=== PATIENT | female | born 1940 | race Caucasian/White ===

== ENCOUNTER 2017-04-13 09:16 | Emergency (ER) | payer MEDICARE, MEDICAID ==
[2017-04-13 09:51] VITALS: RESP 28; O2SAT 95
[2017-04-13] MEDS ORDERED: Sodium Chloride 0.9% 1,000 ML IV STA (09:53)
[2017-04-13 10:11] VITALS: BP 150/94; PULSE 52
[2017-04-13 10:15] LABS: BASO % 0.4 % (0.0-2.0); EOS % 0.1 % (0.0-4.0); HEMOGLOBIN 14.9 g/dL (12.0-16.0); LYMPH % 24.7 % (20.0-40.0); MEAN CELL VOLUME 89.9 fl (81.0-99.0); MEAN CORPUSCULAR HEMOGLOBIN 29.8 pg (27.0-31.0); MEAN CORPUSCULAR HGB CONC 33.2 g/dL (33.0-37.0); MEAN PLATELET VOLUME 8.9 fl (7.2-11.7); MONO # 1.1 K/uL (0.0-0.8); MONO % 9.3 % (0.0-10.0); NEUT # 7.9 K/uL (1.8-7.0); NEUT % 65.5 % (50.0-75.0); NRBC % 0.1 % (0.0-0.0); RBC 4.98 Mil/uL (3.80-5.20); RED CELL DISTRIBUTION WIDTH 13.6 % (11.5-14.5); WHITE BLOOD COUNT 12.1 K/uL (4.8-10.8)
--- NOTE | 2017-04-13 10:19 | ED PDOC ---
HPI: Abdomen Time Seen by Provider: 04/13/17 09:50 Chief Complaint (Nursing): Abdominal Pain Chief Complaint (Provider): Abdominal Pain History Per: Patient History/Exam Limitations: no limitations Onset/Duration Of Symptoms: Hrs Outside of [place] travel?: No Current Symptoms Are (Timing): Still Present Associated Symptoms: Vomiting (x2 episodes). denies: Fever, Chills, Back Pain, Chest Pain, Urinary Symptoms Additional Complaint(s): Brandy Sanabria, a 76 year old female, presents to the ED complaining of non- radiating generalized abdominal pain that started 7am today after breakfast. The patient states that she slept through the night okay but had 2 episodes of vomiting x2. Denies fevers, chills, chest pain, back pain and urinary complaints. Abnormal Vaginal Bleeding: No Past Medical History Reviewed: Historical Data, Nursing Documentation, Vital Signs Vital Signs: Last Vital Signs Temp Pulse 52 L 04/13/17 10:11 Resp 28 H 04/13/17 09:42 BP 150/94 H 04/13/17 10:11 Pulse Ox 95 04/13/17 10:47 - Medical History PMH: Arthritis (osteoarthritis), HTN, Hyperlipidemia - Surgical History Surgical History: - Family History Family History: States: Unknown Family Hx - Living Arrangements Living Arrangements: With Family (lives w/ ) - Home Medications Home Medications: Ambulatory Orders Medication Instructions Recorded Ciprofloxacin/Ciprofloxa HCl 500 mg PO BID #14 tab 12/06/14 [Ciprofloxacin] Ondansetron [Zofran Odt] 4 mg PO Q8H PRN #20 odt 12/06/14 traMADol [Ultram] 50 mg PO Q6 PRN #16 tab 02/14/16 Famotidine [Pepcid] 20 mg PO BID #28 tab 04/13/17 - Allergies Allergies/Adverse Reactions: Allergies Allergy/AdvReac Type Severity Reaction Status Date / Time No Known Allergies Allergy Verified 04/13/17 09:41 Review of Systems Constitutional: Negative for: Fever, Chills Cardiovascular: Negative for: Chest Pain Gastrointestinal: Positive for: Abdominal Pain (non-radiating generalized abdominal pain) Genitourinary Female: Negative for: Dysuria, Frequency, Incontinence, Hematuria Musculoskeletal: Negative for: Back Pain Physical Exam - Reviewed Nursing Documentation Reviewed: Yes Vital Signs Reviewed: Yes - Physical Exam Appears: Positive for: Non-toxic, Uncomfortable (Mild discomfort) Head Exam: Positive for: ATRAUMATIC, NORMAL INSPECTION, NORMOCEPHALIC Skin: Positive for: Normal Color, Warm, Dry Eye Exam: Positive for: Normal appearance, EOMI, PERRL ENT: Positive for: Normal ENT Inspection Neck: Positive for: Normal, Painless ROM, Supple Cardiovascular/Chest: Positive for: Regular Rate, Rhythm, Chest Non Tender. Negative for: Tachycardia Respiratory: Positive for: Normal Breath Sounds. Negative for: Wheezing, Respiratory Distress Gastrointestinal/Abdominal: Positive for: Normal Exam, Bowel Sounds, Soft. Negative for: Tenderness (No focal or palpable tenderness), Distended, Guarding , Rebound Back: Positive for: Normal Inspection Extremity: Positive for: Normal ROM. Negative for: Tenderness, Pedal Edema, Deformity, Swelling Neurologic/Psych: Positive for: Alert, Oriented, Gait - Laboratory Results Result Diagrams: 04/13/17 10:06 04/13/17 10:06 - ECG O2 Sat by Pulse Oximetry: 95 (RA) Pulse Ox Interpretation: Normal - Progress Re-evaluation Time: 12:30 Condition: Re-examined, Improved Medical Decision Making Medical Decision Makin Initial Impression: 76 year old female presenting with abdominal pain Differentials: Gastritis vs Gastroenteritis vs UTI Initial Plan: * EKG * Comp Metabolic Panel * Lipase * Troponin * Udip * CB * CXR * NS 1000mls IV 125mls/hr * Pepcid 20mg IVP * Urinalysis * Reevaluation Scribe Attestation Documented by Wanda Shi acting as a scribe for Pamela Castillo MD. Provider Attestation: All medical record entries made by the Scribe were at my direction and personally dictated by me. I have reviewed the chart and agree that the record accurately reflects my personal performance of the history, physical exam, medical decision making, and the department course for this patient. I have also personally directed, reviewed, and agree with the discharge instructions and disposition. Disposition - Clinical Impression Clinical Impression: Gastritis - Patient ED Disposition Is Patient to be Admitted: No Doctor Will See Patient In The: Office Counseled Patient/Family Regarding: Diagnosis, Need For Followup - Disposition Referrals: Facundo Acuna MD [Medical Doctor] - Disposition: Routine/Home Disposition Time: 12:35 Condition: IMPROVED Prescriptions: Famotidine [Pepcid] 20 mg PO BID #28 tab Instructions: Gastritis (ED) Print Language: S[place]UDANESE - POA Present On Arrival: None
[2017-04-13 10:36] LABS: ALB/GLOB RATIO 1.5 (1.0-2.1); ALBUMIN 4.5 g/dL (3.5-5.0); ALT/SGPT 34 U/L (9-52); AST/SGOT 23 U/L (14-36); BLOOD UREA NITROGEN 20 mg/dl (7-17); CALCIUM 10.3 mg/dL (8.4-10.2); GFR AFRICAN-AMERICAN > 60; GFR NON-AFRICAN AMERICAN > 60; LIPASE 201 U/L (23-300)
--- NOTE | 2017-04-13 10:47 | CARD ---
APPROVED REPORT EKG Measurement Heart [id number] <Conclusion> Sinus rhythm with occasional premature ventricular complexes Minimal voltage criteria for LVH, may be normal variant Inferior infarct, age undetermined Abnormal ECG
--- NOTE | 2017-04-13 12:43 | RAD ---
PROCEDURE: CHEST RADIOGRAPH, 1 VIEW HISTORY: abd pain COMPARISON: None available. FINDINGS: LUNGS: Central pulmonary vascularity is increased; rule out mild chronic compensated pulmonary edema/CHF. Suspect mild bibasilar atelectasis left greater than right. PLEURA: No pneumothorax or pleural fluid seen. CARDIOVASCULAR: Mild cardiomegaly. OSSEOUS STRUCTURES: No significant abnormalities. VISUALIZED UPPER ABDOMEN: Normal. OTHER FINDINGS: None. IMPRESSION: Central pulmonary vascularity is increased; rule out mild chronic compensated pulmonary edema/CHF. Suspect mild bibasilar atelectasis left greater than right.
== END 2017-04-13 13:27 | disposition home or self-care (01) ==
LOC: H.ER 09:16
DX: K29.70 Gastritis, unspecified, without bleeding (principal); I10 Essential (primary) hypertension
CPT/HCPCS: 71010; 80053; 83690; 84484; 85025; 87086; 93005; 96374; 96375; 99284; J2405; J7040